=== PATIENT | female | born 1985 | race Caucasian/White ===

== ENCOUNTER 2020-01-15 21:00 | Emergency (ER) | payer BC ==
[2020-01-15] MEDS ORDERED: Adacel (T-DAP) 0.5 ML SYRINGE ONE (22:18)
[2020-01-15] MEDS ORDERED: Amoxicillin/Potassium Clav 875 MG TAB ONE (22:18)
== END 2020-01-15 22:28 | disposition home or self-care (01) ==
LOC: MADERS 21:00
DX: S01.05XA Open bite of scalp, initial encounter (principal); S01.85XA Open bite of other part of head, initial encounter; S01.25XA Open bite of nose, initial encounter; F41.9 Anxiety disorder, unspecified; E28.2 Polycystic ovarian syndrome; F17.290 Nicotine dependence, other tobacco product, uncomplicated; Z79.899 Other long term (current) drug therapy; W55.01XA Bitten by cat, initial encounter
CPT/HCPCS: 90471; 90715; 99283